=== PATIENT | female | born 1980 | race Caucasian/White ===

== ENCOUNTER 2022-08-30 08:47 | Outpatient (CLI) | payer BC, SELFPAY | END 2022-08-30 08:48 | disposition home or self-care (01) | LOC: NFLDREF 09-02 08:45 | PROVIDERS: PCP Family Medicine; Referring Provider Family Medicine; Visit Provider Family Medicine | DX: Z13.9 Encounter for screening, unspecified (principal); Z13.6 Encounter for screening for cardiovascular disorders | CPT/HCPCS: 80053; 80061 ==

== ENCOUNTER 2023-04-23 09:50 | Outpatient (CLI) | payer BC, SELFPAY ==
--- NOTE | 2023-04-23 10:15 | CRLHL7_ITS ---
For Patients: As a result of the Century Cures Act, medical imaging exams and procedure reports are released immediately into your electronic medical record. You may view this report before your referring provider. If you have questions, please contact your health care provider. BILATERAL SCREENING MAMMOGRAM WITH COMPUTER-AIDED DETECTION AND TOMOSYNTHESIS TECHNIQUE: CC and MLO views were obtained. These mammographic images have been obtained using full-field digital technique. These mammographic images were interpreted with the benefit of computer-aided detection. Breast tomosynthesis was used in this interpretation. COMPARISON FILM: None. This is a baseline study. FINDINGS: The breasts are heterogeneously dense, which may obscure small masses. IMPRESSION: There is no radiographic evidence for malignancy. ASSESSMENT: BI-RADS Category 1: Negative RECOMMENDATION: Routine screening mammogram in 1 year. Annual mammograms beginning at age 40. A lay language report of this examination will be provided to the patient. MU GRACIA M.D. Diagnostic Radiologist [email or web address] Transcribed: 2:[address]/Dictated by: Mu Gracia MD @ 04/23/2023 10:54:00 AM (Electronically Signed)
== END 2023-04-23 09:51 | disposition home or self-care (01) ==
LOC: MAMMO 09:51
PROVIDERS: PCP Family Medicine; Visit Provider Family Medicine
DX: Z12.31 Encounter for screening mammogram for malignant neoplasm of breast (principal); R92.2 Inconclusive mammogram
CPT/HCPCS: 77063; 77067